=== PATIENT | female | born 1960 | race Caucasian/White ===

== ENCOUNTER → 2021-07-13 | Outpatient (CLI) | payer OTHER ==
[~2021-07-13] MED LIST: ATOR10 PO; Multiple Vitam1 EAC1 PO; Prilosec Otc20 MG PO; RXHYDACE PO
== END ==
LOC: LAB 11:26 → LAB SHORT 11:26
PROVIDERS: Nurse Practitioner Family
DX: Z01.419 Encounter for gynecological examination (general) (routine) without abnormal findings (principal)
CPT/HCPCS: G0145

== ENCOUNTER → 2024-05-01 | Outpatient (CLI) | payer SELFPAY ==
[2024-05-01 15:41] LABS: CHOL/HDL RATIO 4.7; Cholesterol 236 mg/dL (50-200); HDL Cholesterol 50 mg/dL (>39); LDL/HDL RATIO 3.2; Low Density Lipoprotein Chol 161 mg/dL (0-110); Triglycerides 125 mg/dL (30-160); Very Low Density Lipoprot Chol 25 mg/dL (6-32)
== END | disposition home or self-care (01) ==
LOC: LAB SHORT 11:50
PROVIDERS: Internal Medicine
DX: E78.2 Mixed hyperlipidemia (principal); E03.9 Hypothyroidism, unspecified
CPT/HCPCS: 80061; 84443

== ENCOUNTER 2024-07-21 06:12 | Emergency (ER) | payer SELFPAY ==
[~2024-07-21] VITALS: Ht 165.1 cm; Wt 72.6 kg
[2024-07-21] MEDS ORDERED: Ketorolac Tromethamine 30mg Vial IV ONE (07:05)
[2024-07-21] MEDS ORDERED: HYDROmorphone HCl/Pf 1MG SYR IV ONE (07:05)
[2024-07-21] MEDS ORDERED: Ondansetron HCl 2 MG / ML 2ML Vial IV ONE (07:05)
[2024-07-21] MEDS ORDERED: NS 1,000 ML IV SCH (07:05)
[2024-07-21 07:14] LABS: BASOPHILS ABSOLUTE AUTO 0.04 K/mm3 (0.00-0.23); BASOPHILS PERCENT AUTO 0 % (0-2); EOSINOPHILS ABSOLUTE AUTO 0.12 K/mm3 (0.00-0.68); EOSINOPHILS PERCENT AUTO 1 % (0-6); Hematocrit 42.7 % (33.0-51.0); IMMATURE GRAN ABSOLUTE AUTO 0.03 K/mm3 (0.00-0.10); IMMATURE GRAN PERCENT AUTO 0 % (0-1); LYMPHOCYTES ABSOLUTE AUTO 2.92 K/mm3 (0.84-5.20); LYMPHOCYTES PERCENT AUTO 30 % (21-46); MONOCYTES ABSOLUTE AUTO 0.66 K/mm3 (0.16-1.47); MONOCYTES PERCENT AUTO 7 % (4-13); Mean Corpuscular HGB 29.5 pg (26.0-34.0); Mean Corpuscular HGB Conc 35.1 g/dL (31.5-36.5); Mean Corpuscular Volume 84 fL (80-100); Mean Platelet Volume 12.2 fL (9.1-12.4); NEUTROPHILS ABSOLUTE AUTO 5.97 K/mm3 (1.96-9.15); NEUTROPHILS PERCENT AUTO 61 % (41-73); Platelet Count 200 K/mm3 (150-400); RDW Coefficient Variation 13.2 % (11.7-14.2); RDW Standard Deviation 40.7 fL (35.1-46.3); Red Blood Cell Count 5.09 M/mm3 (3.80-5.20); White Blood Cell Count 9.74 K/mm3 (4.00-11.30)
[2024-07-21] MEDS ORDERED: OZEMPIC0.25 MG/02 SQ (07:22)
[2024-07-21] MEDS ORDERED: METF500 PO (07:23)
[2024-07-21] MEDS ORDERED: EUTHYROX125 MCG PO (07:23)
[2024-07-21 07:26] LABS: Albumin/Globulin Ratio 1.2 (0.8-1.8); Bilirubin, Total 0.5 mg/dL (0.1-1.0); Bun/Creatinine Ratio 15.2 (12.0-20.0); Calcium, Blood 9.5 mg/dL (8.5-10.1); Creatinine, Blood 0.99 mg/dL (0.40-1.00); Globulin, Blood 3.4 g/dL (2.2-4.0); Potassium, Blood 3.6 mmol/L (3.5-5.5); Total Protein, Blood 7.4 g/dL (6.4-8.2)
[2024-07-21 07:37] LABS: Source, Urine Straight Cath
[2024-07-21 07:40] LABS: Appearance, Urine Clear (Clear); Bilirubin, Urine Neg (Neg); Blood, Urine Neg (Neg); Color, Urine Yellow (P-Yellow); Glucose Qualitative, Urine Neg (Neg); Ketones, Urine 2+ (Neg); Leukocyte Esterase, Urine Neg (Neg); Nitrite, Urine Neg (Neg); Protein, Urine Neg (Neg); Specific Gravity, Urine 1.015 (1.003-1.022); Urobilinogen, Urine NORM (Normal)
[2024-07-21 09:03] VITALS: BP 124/78
[2024-07-21] MEDS ORDERED: OXYC5 PO (09:05)
[2024-07-21] MEDS ORDERED: RX Prepack 6 Tabs Oxycodone 5mg UD ONE (09:05)
== END 2024-07-21 09:27 | disposition home or self-care (01) ==
LOC: ER 06:12
PROVIDERS: Emergency Medicine
DX: N13.2 Hydronephrosis with renal and ureteral calculous obstruction (principal); Z79.84 Long term (current) use of oral hypoglycemic drugs; Z79.899 Other long term (current) drug therapy
CPT/HCPCS: 74177; 80053; 81003; 83690; 85025; 96361; 96374-59; 96375; 99284-25; A9270; J1170; J1885; J2405; J7030; Q9967